=== PATIENT | male | born 1950 | race Caucasian/White ===

== ENCOUNTER → 2024-08-14 13:30 | Outpatient (REF) | payer OTHER, SELFPAY | LOC: RAD 13:30 | PROVIDERS: ATTENDING PHYSICIAN Surgery; FAMILY PHYSICIAN Internal Medicine Geriatric Medicine | DX: R22.41 Localized swelling, mass and lump, right lower limb (principal); I83.90 Asymptomatic varicose veins of unspecified lower extremity | CPT/HCPCS: 93971 ==

== ENCOUNTER → 2024-08-15 12:18 | Outpatient (REF) | payer OTHER, SELFPAY | LOC: MRI 3T 12:18 | PROVIDERS: ATTENDING PHYSICIAN Dermatology MOHS-Micrographic Surgery; FAMILY PHYSICIAN Internal Medicine Geriatric Medicine | DX: D48.5 Neoplasm of uncertain behavior of skin (principal) | CPT/HCPCS: 73723; A9575 ==